=== PATIENT | female | born 1990 | race Caucasian/White ===

== ENCOUNTER 2023-12-31 21:44 | Emergency (ER) | payer MEDICAID ==
[~2023-12-31] VITALS: Ht 157.5 cm; Wt 62.0 kg
[2023-12-31 21:57] VITALS: O2SAT 99
[2023-12-31] MEDS: KETOROLAC 15MG/ML VIAL IM ONE (23:00)
[2023-12-31] MEDS ORDERED: NAPR-1176 MT (23:55)
[2023-12-31] MEDS ORDERED: LIDO700A15 TP (23:55)
[2024-01-01] VITALS: BP 105/70; PULSE 85; RESP 17; TEMP 36.83628; O2SAT 100
== END 2024-01-01 01:59 | disposition home or self-care (01) ==
LOC: ER 21:44
DX: S90.32XA Contusion of left foot, initial encounter (principal); M79.672 Pain in left foot; R60.0 Localized edema; Z79.1 Long term (current) use of non-steroidal anti-inflammatories (NSAID); W01.0XXA Fall on same level from slipping, tripping and stumbling without subsequent striking against object, initial encounter; Y93.89 Activity, other specified; Y92.89 Other specified places as the place of occurrence of the external cause; Y99.8 Other external cause status
CPT/HCPCS: 81025; 73610; 73630; 96372; 99284; J1885; Z7610